=== PATIENT | male | born 1980 | race Caucasian/White ===

== ENCOUNTER 2018-08-17 00:21 | Emergency (ER) | payer MEDICAID ==
[~2018-08-17] VITALS: Ht 167.6 cm; Wt 86.8 kg
[2018-08-17 00:23] VITALS: BP 147/80; PULSE 115; RESP 19; Ht 167.6 cm; Wt 86.8 kg
--- NOTE | 2018-08-17 00:43 | ERD ---
ER Documentation Chief Complaint Chief Complaint RIGHT FOOT INJ; HIT ON TABLE X3DAYS AGO HPI 37-year-old male with no reported past medical history presents with complaint of right foot pain after sustaining injury 3 days ago. States he was in his home when he banged his right foot against a metal table. Reports pain which is most prominent to fifth digit of right foot. Erythema and swelling and reported black and blue appearance of fifth toe on the right foot. Patient has been able to ambulate although with some pain. He otherwise is without complaint. ROS All systems reviewed and are negative except as per history of present illness. Medications Home Meds Active Scripts Ibuprofen* (Motrin*) 600 Mg Tab, 600 MG PO Q6, #30 TAB Prov:JEUDINE,JACQUIEHO PA-C 08/17/18 Hydrocodone/Acetaminophen ([place] 5-325 Tablet) 1 Each Tablet, 1 TAB PO Q6H PRN for PAIN, #7 TAB Prov:JEUDINE,GETHO PA-C 08/17/18 Allergies Allergies: Coded Allergies: No Known Allergy (Unverified , 08/17/18) PMhx/Soc Medical and Surgical Hx: pt denies Medical Hx, pt denies Surgical Hx Hx Alcohol Use: Yes (socially) Hx Substance Use: Yes Hx Tobacco Use: No Smoking Status: Current every day smoker FmHx Family History: No diabetes, No coronary disease, No other Physical Exam Vitals Vital Signs Date Temp Pulse Resp B/P (MAP) Pulse Ox O2 O2 Flow FiO2 Time Delivery Rate 08/17/18 98.3 115 19 147/80 98 00:23 (102) Physical Exam I have reviewed the triage vital signs. Const: Well nourished, well developed, appears stated age Eyes: PERRL, no conjunctival injection HENT: NCAT, Neck supple without meningismus CV: RRR, Warm, well-perfused extremities RESP: CTAB, Unlabored respiratory effort GI: soft, non-tender, non-distended, no masses MSK: R foot with erythema swelling of fifth digit, patient able to move and wiggle all toes. [place] throughout right foot. No lacerations noted Skin: Warm, dry. No rashes Neuro: grossly non focal Psych: Appropriate mood and affect. Procedures/MDM 37-year-old male presents with right fifth digit pain after sustaining injury. X-ray of fifth toe with mildly displaced fracture. Plan: Appropriate pain medications and PMD follow-up, planting marisa taping of the toe DISPOSITION PLAN: We discussed follow up with the patient's primary care doctor within 24 to 48 hours. Patient counseled regarding my diagnostic impression and care plan. Prior to discharge all questions answered. Pt agrees with treatment plan and understands strict return precautions. Precautionary instructions provided including instructions to return to the ER if not improving or for any worsening or changing symptoms or concerns. Disclaimer: Inadvertent spelling and grammatical errors are likely due to EHR/dictation software use and do not reflect on the overall quality of patient care. Also, please note that the electronic time recorded on this note does not necessarily reflect the actual time of the patient encounter. Departure Diagnosis: Primary Impression: Injury of foot Additional Impression: Toe fracture Condition: Stable OUMOU KINGSLEY PA-C Aug 17, 2018 00:43
[2018-08-17] MEDS ORDERED: IBUP800T48 PO (00:52)
[2018-08-17] MEDS ORDERED: HYDR-4011 PO (01:19)
[2018-08-17] MEDS ORDERED: IBUP-1542 PO (01:19)
== END 2018-08-17 01:35 | disposition home or self-care (01) ==
LOC: FTE 00:21
DX: S92.511A Displaced fracture of proximal phalanx of right lesser toe(s), initial encounter for closed fracture (principal); F17.210 Nicotine dependence, cigarettes, uncomplicated; W22.03XA Walked into furniture, initial encounter
CPT/HCPCS: 73660